=== PATIENT | female | born 1950 | race Caucasian/White ===

== ENCOUNTER 2025-09-06 01:57 | Emergency (ER) | payer MEDICAID, MEDICARE, OTHER ==
[~2025-09-06] VITALS: Ht 165.1 cm; Wt 96.6 kg
[~2025-09-06 01:57] MED LIST: ACET-66 PO; AMIO200T73 PO; APIX5TAB PO; ATOR40TA69 PO; CYAN-37 PO; FOLI0.4T6 PO; LETR2.5T7 PO; LEVO75CA6 PO
--- NOTE | 2025-09-06 02:03 | ERN ---
ED Note History of Present Illness Stated Complaint: L KNEE PAIN S/P FALL Chief Complaint: Knee Injury/Swelling Time Seen by MD: 02:00 Dictation: PATIENT IS A 75-YEAR-OLD FEMALE CAME IN VIA EMS WITH COMPLAINTS OF A SLIP FALL LANDING ON HER LEFT HIP AND KNEE PAIN. SHE DENIES LOC NO NAUSEA VOMITING NO HEAD INJURY. SHE IS ON BLOOD THINNERS. NO SHORTENING OR ROTATION OF LEFT LEG. Allergies: Coded Allergies: Penicillins (Unverified Allergy, Unknown, 05/21/25) Home Meds Reported Medications Levothyroxine Sodium (Levothyroxine) 75 Mcg Capsule, 1 TAB PO DAILY for 30 Days, #30 CAP 0 Refills 05/22/25 Letrozole (Letrozole) 2.5 Mg Tablet, 2.5 MG PO AM, TAB 05/22/25 Letrozole (Letrozole) 2.5 Mg Tablet, 1 TAB PO DAILY for 30 Days, #30 TAB 0 Refills 05/22/25 Folic Acid (Folic Acid) 0.4 Mg Tablet, 1 TAB PO DAILY for 30 Days, #30 TAB 0 Refills 05/22/25 Cyanocobalamin (Vitamin B-12) (B-12) 1,000 Mcg Tablet, 1 TAB PO DAILY for 30 Days, #30 TAB 0 Refills 05/22/25 Atorvastatin Calcium (LIPITOR) 40 Mg Tablet, 1 TAB PO DAILY for 30 Days, #30 TAB 0 Refills 05/22/25 Apixaban (Eliquis) 5 Mg Tablet, 1 TAB PO BID for 30 Days, #60 TAB 0 Refills 05/22/25 Amiodarone HCl (Amiodarone HCl) 200 Mg Tablet, 1 TAB PO DAILY for 30 Days, #30 TAB 0 Refills 05/22/25 Acetaminophen (Tylenol) 500 Mg Tab, 1 TAB PO Q6HPRN PRN for pain or fever for 15 Days, #60 TAB 0 Refills 05/22/25 Past Medical History Past Medical History: A-Fib, Hypertension Surgical History: Other History: Not Applicable RN Note Reviewed/Agreed w/PFSH: Yes Review of System Dictation CONSTITUTIONAL: NEGATIVE EXCEPT FOR HPI HEAD/FACE: NEGATIVE EXCEPT FOR HPI EENT: NEGATIVE EXCEPT FOR HPI RESPIRATORY: NEGATIVE EXCEPT FOR HPI GASTROINTESTINAL/ABDOMINAL: NEGATIVE EXCEPT FOR HPI GENITOURINARY: NEGATIVE EXCEPT FOR HPI MUSCULOSKELETAL: NEGATIVE EXCEPT FOR HPI LEFT HIP AND KNEE PAIN INTEGUMENTARY: NEGATIVE EXCEPT FOR HPI NEUROLOGICAL/PSYCH: NEGATIVE EXCEPT FOR HPI HEMATOLOGIC/LYMPHATIC: NEGATIVE EXCEPT FOR HPI ALL SYSTEMS NEGATIVE, EXCEPT NOTED ABOVE. 13 POINT REVIEW OF SYSTEMS ASSESSED AND ALL NEGATIVE EXCEPT FOR ABOVE. Initial Vital Sign VS Vital Signs Date Time Temp Pulse Resp B/P (MAP) Pulse Ox O2 Delivery O2 Flow Rate FiO2 09/06/25 02:14 98.2 83 16 114/75 93 Room Air 0 09/06/25 02:23 21 Physical Exam Dictation VITAL SIGNS REVIEWED GENERAL APPEARANCE: ALERT, ORIENTED X 3, MODERATE ACUTE DISTRESS, WELL DEVELOPED, NOURISHED. HEAD AND FACE: NON-TRAUMATIC. EYES: PERRL, PINK CONJUNCTIVAS, EYELID NO TRAUMA, ANTERIOR CHAMBER WITH ARCUS SENILIS. EARS: PINNAS INTACT AND NO SIGNS OF TRAUMA OR ERYTHEMA EAR CANALS CLEAR AND NO DISCHARGE TM NO ERYTHEMA NOSE: NO DISCHARGE, NO BLEEDING. OROPHARYNX: MOUTH NORMAL, TONGUE PINK, PHARYNX CLEAR,NO ERYTHEMA, TONSILS NO EXUDATES, NO ABSCESSES NOTED, MUCOUS MEMBRANE MOIST NECK: SUPPLE, NON-TENDER, NO THYROMEGALY, NO MASSES, NO JVD, NO BRUITS BREAST:DEFERRED CHEST:NO TENDERNESS, NO CREPITUS, NO PARADOXICAL MOVEMENT, NO RETRACTIONS LUNGS:CLEAR, WELL-VENTILATED, SYMMETRIC, NO RALES, NO WHEEZING, NO RHONCHI, NO STRIDOR, GOOD BREATH SOUNDS BILATERALLY HEART: REGULAR RATE, REGULAR RHYTHM, NO MURMUR, NO GALLOPS VASCULAR: NO PERIPHERAL EDEMA, ABDOMEN: SOFT, POSITIVE BOWEL SOUNDS, NONDISTENDED, NO GUARDING, NONTENDER, NO REBOUND, NO MASSES NO HEPATOMEGALY, NO SPLENOMEGALY, NO ROCHE'S SIGN, NO HERNIAS. RECTAL: DEFERRED GENITAL: DEFERRED NEUROLOGICAL: NORMAL SPEECH, MOTOR FUNCTION INTACT, SENSORY FUNCTION INTACT MUSCULOSKELETAL: NECK NONTENDER, FULL RANGE OF MOTION, BACK NONTENDER, FULL RANGE OF MOTION, EXTREMITIES: LEFT LATERAL HIP AND ANTERIOR KNEE PAIN. NO SHORTENING OR ROTATION OF LEFT LEG. DISTAL NEUROVASCULAR CMS INTACT SKIN: COLOR PINK, DRY, NO TURGOR, NO RASH, NO LACERATIONS, NO ABRASIONS, NO CONTUSIONS. LYMPHATIC: DEFERRED Results (Laboratory/Radiology) Laboratory/Radiology 0232/ LEFT KNEE X-RAY DEGENERATIVE CHANGES ONLY LEFT HIP X-RAY NEGATIVE EXCEPT FOR DEGENERATIVE CHANGES Labs Reviewed?: Yes ED Course ED Course Orders Procedure Category Date Status Time Knee 3vws Lt RAD 09/06/25 Taken 02:00 Hip Unilat 2-3vw Left RAD 09/06/25 Taken 02:00 Acetaminophen With PHA 09/06/25 Complete Codeine (Tylenol-Code 02:00 Current Medications Medications (Trade) Dose Ordered Sig/Vaibhav Route PRN Reason Start Time Stop Time Status Last Admin Dose Admin Acetaminophen/ Codeine Phosphate (TYLenol-coDEINE TAB) 2 tab ONCE ONCE PO 09/06/25 02:00 09/06/25 02:11 DC 09/06/25 02:22 Vital Signs Date Time Temp Pulse Resp B/P (MAP) Pulse Ox O2 Delivery O2 Flow Rate FiO2 09/06/25 02:23 98.4 85 18 125/66 98 Room Air* 0 21 09/06/25 02:14 98.2 83 16 114/75 93 Room Air 0 0235/LEFT HIP AND KNEE X-RAY NEGATIVE EXCEPT FOR DEGENERATIVE CHANGES PAIN IS MANAGED DISTAL NEUROVASCULAR CMS INTACT LEFT LEG Medical Decision Making MDM MEDICAL DECISION-MAKING BASED ON PAIN MANAGEMENT FOR ACUTE HIP AND KNEE PAIN. LEFT HIP AND KNEE DEGENERATIVE CHANGES ONLY NO FRACTURE DISTAL NEUROVASCULAR CMS INTACT LEFT LEG PATIENT DISCHARGED HOME WITH FAMILY TO FOLLOW UP WITH HER DOCTOR IN THE NEXT 1-2 DAYS DX & DISP Disposition: Discharge Departure Impression: Primary Impression: Contusion of left hip, initial encounter Additional Impressions: Contusion of left knee, initial encounter, Fall Condition: Stable Scripts Acetaminophen with Codeine (Acetaminophen-Cod #3 Tablet) 300 Mg-30 Mg Tablet 1 TAB PO Q4H PRN for MODERATE TO SEVERE PAIN, #10 TAB 0 Refills Prov: MARYCHUY PRADO OIL DERRICK OPERATOR 09/06/25 Additional Instructions: Follow-up with primary care provider in 1 to 2 days. Take medications as directed here in the emergency room. Okay to continue home medications unless otherwise discussed during your visit in the emergency room today. Return to your nearest emergency room if symptoms worsen or if there is no improvement. Call 911 if you need immediate assistance. Take Tylenol or Motrin [id number] as needed and if no contraindications are present. Increase oral hydration. A wound culture or urine culture was ordered here in the emergency room department please follow-up with primary care provider and advise them to get repeat ports from our facility. If you had any Yo wrap/splints that were applied here, please do not remove them until you see your primary care or specialty. Cool compresses to pain three to 4 times a day. Take plain Tylenol for mild pain. See your primary care doctor for follow up. Referrals: SELF,REFERRAL (PCP) Time of Disposition: 02:38 I have reviewed the case, and I agree with, Diagnosis and Plan MARYCHUY PRADOP Sep 06, 2025 02:03
[2025-09-06 02:23] VITALS: BP 125/66; PULSE 85; RESP 18; TEMP 98.5; O2SAT 98
[2025-09-06] MEDS ORDERED: ACET-2079 PO (02:39)
--- NOTE | 2025-09-06 03:10 | NUR ---
TRANSPORT BOOKED, PAPERWORK SENT
--- NOTE | 2025-09-06 03:19 | HMCIMG ---
EXAM: CR Left Knee, 3 views CLINICAL HISTORY: Fall. COMPARISON: Radiograph of the left knee dated 09/11/2013. FINDINGS: No acute fracture or aggressive appearing osseous lesion. Mild osteopenia. Medial compartment predominant moderate to severe tricompartmental knee joint osteoarthritis. No suprapatellar effusion. Grossly unremarkable soft tissues. IMPRESSION: No acute bony abnormality is evident. Mild osteopenia. Medial compartment predominant moderate to severe tricompartmental knee joint osteoarthritis. Interval worsening in the degenerative process. /[place]
--- NOTE | 2025-09-06 03:23 | HMCIMG ---
EXAM: CR Left Hip, 2 views. CLINICAL HISTORY: Pain. Fall. COMPARISON: None provided. FINDINGS: There is mild shortening of the left femoral neck, concerning for a subcapital femoral neck fracture. Recommend a CT scan of the left hip for an optimal evaluation. Mild osteopenia. Mild osteoarthritis. Unremarkable soft tissues. IMPRESSION: There is mild shortening of the left femoral neck, concerning for a subcapital femoral neck fracture. Recommend a CT scan of the left hip for an optimal evaluation. /[place]
--- NOTE | 2025-09-06 03:59 | NUR ---
TRANSPORT ARRIVED FOR PT AT THIS TIME
[2025-09-08] MEDS ORDERED: FURO40TA7 PO (09:03)
== END 2025-09-06 04:30 | disposition home or self-care (01) ==
LOC: EDH 01:57
DX: S70.02XA Contusion of left hip, initial encounter (principal); S80.02XA Contusion of left knee, initial encounter; I48.91 Unspecified atrial fibrillation; I10 Essential (primary) hypertension; Z88.0 Allergy status to penicillin; Z79.899 Other long term (current) drug therapy; Z79.811 Long term (current) use of aromatase inhibitors; Z79.01 Long term (current) use of anticoagulants; W01.0XXA Fall on same level from slipping, tripping and stumbling without subsequent striking against object, initial encounter; Y93.89 Activity, other specified; Y92.89 Other specified places as the place of occurrence of the external cause; Y99.8 Other external cause status
CPT/HCPCS: 73502; 73562; 99284